=== PATIENT | female | born 1955 | race African-American/Black ===

== ENCOUNTER 2018-07-02 14:17 | Emergency (ER) | payer OTHER ==
[~2018-07-02] VITALS: Ht 167.6 cm; Wt 86.2 kg
--- NOTE | ~2018-07-02 | EKG ---
[address] [place] [address] ELECTROCARDIOGRAM REPORT Name: RAJIV PETERS [id number] Admission: 07/02/18 Attend Phys: Discharge: Date of : 55 Report #: [id number] THIS REPORT FOR: //name// [facility] ED Test Date: 2018-07-02 Test Time: 14:56:13 Pat Name: RAJIV PETERS Department: Room: Gender: F Excavating Supervisor: : 1955 Requested By: Joanie Witt Order Number: [id number] MD: Quique Lema Measurements Intervals [place] Rate: 120 P: 44 RI: 128 QRS: 31 QRSD: 88 T: 54 QT: 321 QTc: 454 Interpretive Statements Sinus tachycardia Early R-wave progression Nonspecific ST segment abnormality Baseline wander in lead(s) V1 No previous ECG available for comparison Electronically Signed On 07-02-2018 17:21:59 CDT by Quique Lema [email or web address] <ELECTRONICALLY SIGNED> By: Quique Lema MD, [facility] 07/02/18 1721 1456 1456 Quique Lema MD, FACC /EPI
[2018-07-02 15:15] LABS: HEMATOCRIT 33.2 % (37.0-47.0); HEMOGLOBIN 11.2 gm/dL (12.0-15.0); MCH 35.1 pg (26.0-34.0); MCHC 33.9 g/dL (28.0-37.0); MCV 103.7 fL (80.0-100.0); RBC 3.2 mil/uL (4.20-5.00); RDW 18.7 % (10.5-14.5); WBC 8.8 thou/uL (4.0-11.0)
[2018-07-02 15:24] LABS: URINE BILIRUBIN NEGATIVE (Negative); URINE BLOOD NEGATIVE (Negative); URINE CLARITY CLEAR; URINE COLOR YELLOW; URINE GLUCOSE-RANDOM* NEGATIVE (Negative); URINE KETONES NEGATIVE (Negative); URINE PROTEIN (DIPSTICK) NEGATIVE (Negative); URINE SPECIFIC GRAVITY 1.015 (1.005-1.035); URINE UROBILINOGEN 0.2 E.U./dl (0.2-1.0)
[2018-07-02 15:26] LABS: ANION GAP 11 mmol/L (7-16); BUN 12 mg/dL (7-18); CALCIUM 8.7 mg/dL (8.5-10.1); CHLORIDE 106 mmol/L (98-107); CO2 23 mmol/L (21-32); CREATININE 0.7 mg/dL (0.6-1.0); GLUCOSE 126 mg/dL (74-106); POTASSIUM 3.7 mmol/L (3.5-5.1); SODIUM 140 mmol/L (136-145)
[2018-07-02 15:27] LABS: URINE LEUKOCYTES-REFLEX TRACE (Negative); URINE NITRITE-REFLEX POSITIVE (Negative)
[2018-07-02 15:32] LABS: ALBUMIN 2.7 g/dL (3.4-5.0); SGOT 12 U/L (15-37); SGPT 9 U/L (30-65); TOTAL BILIRUBIN 0.7 mg/dL (<0.1-1.0); TROPONIN-I <0.06 ng/mL (<0.06)
[2018-07-02 15:33] LABS: BACTERIA-REFLEX >30 Many /HPF (None Seen); CASTS None Seen /LPF (None Seen); CRYSTALS None Seen /LPF (None Seen); SQUAMOUS 0-3 Few /LPF (0-3); URINE RBC None Seen /HPF (0-2); URINE WBC-REFLEX 6-15 Few /HPF (0-5)
[2018-07-02] MEDS ORDERED: XANAX 0.5 MG0.5 MG PO (16:01)
[2018-07-02] MEDS ORDERED: OXYCONTIN15 MG PO (16:01)
[2018-07-02] MEDS ORDERED: TRAZODONE 150150 M1 PO (16:01)
[2018-07-02] MEDS ORDERED: DIOVAN160 MG PO (16:02)
[2018-07-02] MEDS ORDERED: LOPRESSOR50 PO (16:02)
[2018-07-02] MEDS ORDERED: LEFLUNOMIDE 1010 MG PO (16:04)
[2018-07-02] MEDS ORDERED: AZATHIOPRINE50 MG PO (16:06)
[2018-07-02] MEDS ORDERED: MOBIC7.5 M1 PO (16:09)
[2018-07-02] MEDS ORDERED: KEFLEX500 M1 PO (22:21)
[2018-07-02] MEDS ORDERED: OXYCODONE HCL 55 MG PO (22:21)
[2018-07-02 23:25] VITALS: BP 150/89
== END 2018-07-03 00:10 | disposition home or self-care (01) ==
LOC: ER 14:17
PROVIDERS: Student in an Organized Health Care Education/Training Program
DX: G96.8 Other specified disorders of central nervous system (principal); N39.0 Urinary tract infection, site not specified; E11.9 Type 2 diabetes mellitus without complications; I10 Essential (primary) hypertension; J45.909 Unspecified asthma, uncomplicated; M19.90 Unspecified osteoarthritis, unspecified site; K21.9 Gastro-esophageal reflux disease without esophagitis; Z88.2 Allergy status to sulfonamides

== ENCOUNTER 2018-07-10 14:25 | Emergency (ER) | payer OTHER ==
[~2018-07-10] VITALS: Ht 167.6 cm; Wt 85.7 kg
[~2018-07-10 14:25] MED LIST: AZATHIOPRINE50 MG PO; DIOVAN160 MG PO; KEFLEX500 M1 PO; LEFLUNOMIDE 1010 MG PO; LOPRESSOR50 PO; MOBIC7.5 M1 PO; OXYCODONE HCL 55 MG PO; OXYCONTIN15 MG PO; TRAZODONE 150150 M1 PO; XANAX 0.5 MG0.5 MG PO
[2018-07-10] MEDS ORDERED: OXYCODONE HCL15 MG PO (16:50)
== END 2018-07-10 17:00 | disposition home or self-care (01) ==
LOC: ER 14:25
DX: G89.29 Other chronic pain (principal); M54.9 Dorsalgia, unspecified; I10 Essential (primary) hypertension; K21.9 Gastro-esophageal reflux disease without esophagitis; J45.909 Unspecified asthma, uncomplicated; E11.9 Type 2 diabetes mellitus without complications; M19.90 Unspecified osteoarthritis, unspecified site; Z88.2 Allergy status to sulfonamides

== ENCOUNTER 2018-07-18 14:22 | Emergency (ER) | payer OTHER ==
[~2018-07-18] VITALS: Ht 167.6 cm; Wt 81.7 kg
--- NOTE | ~2018-07-18 | EKG ---
[place] [address] [facility] [place] [address] ELECTROCARDIOGRAM REPORT Name: RAJIV PETERS Room #: [facility].#: [id number] Admission: Attend Phys: Discharge: Date of : 55 Report #: [id number] THIS REPORT FOR: //name// [facility] ED Test Date: 2018-07-18 Test Time: 15:02:56 Pat Name: RAJIV PETERS Department: Room: Gender: F [employer]: NIRMALA : 1955 Requested By: Yelitza Gutierrez Order Number: [id number] MD: Elpidio Bravo Measurements Intervals [place] Rate: 108 P: 44 CO: 129 QRS: 24 QRSD: 92 T: 40 QT: 348 QTc: 467 Interpretive Statements Sinus tachycardia early transition Non-specific st/t wave changes Compared to ECG 07/02/2018 14:56:13 no significant changes Electronically Signed On 07-18-2018 15:09:41 [employer] by Elpidio Bravo [email or web address] <ELECTRONICALLY SIGNED> By: Elpidio Bravo MD 07/18/18 1509 1502 1502 Elpidio Bravo MD /ANSON
[~2018-07-18 14:22] MED LIST changes: +OXYCODONE HCL15 MG PO
[2018-07-18 15:18] LABS: HEMATOCRIT 30.5 % (37.0-47.0); HEMOGLOBIN 10.4 gm/dL (12.0-15.0); MCH 35.1 pg (26.0-34.0); MCHC 34.1 g/dL (28.0-37.0); MCV 102.9 fL (80.0-100.0); PLATELET COUNT 269 thou/uL (150-400); RBC 2.96 mil/uL (4.20-5.00); RDW 18.8 % (10.5-14.5); WBC 4.5 thou/uL (4.0-11.0)
[2018-07-18 15:27] LABS: ANION GAP 8 mmol/L (7-16); BUN 19 mg/dL (7-18); CALCIUM 9.3 mg/dL (8.5-10.1); CHLORIDE 106 mmol/L (98-107); CO2 28 mmol/L (21-32); CREATININE 0.7 mg/dL (0.6-1.0); GLUCOSE 123 mg/dL (74-106); POTASSIUM 3.5 mmol/L (3.5-5.1); SODIUM 142 mmol/L (136-145)
[2018-07-18 15:35] LABS: ALBUMIN 3.1 g/dL (3.4-5.0); SGOT 14 U/L (15-37); SGPT 9 U/L (30-65); TOTAL BILIRUBIN 0.5 mg/dL (<0.1-1.0); TOTAL PROTEIN 7.5 g/dL (6.4-8.2); TROPONIN-I <0.06 ng/mL (<0.06)
[2018-07-18 16:15] LABS: ABSOLUTE NEUTROPHILS 2.7 thou/uL (1.4-8.2); ANISOCYTOSIS 2+; MACROCYTES 1+; PLATELET ESTIMATE NORMAL; SCHISTOCYTES 1+
[2018-07-18] MEDS ORDERED: OXYCODONE HCL15 MG PO (17:33)
[2018-07-18] MEDS ORDERED: SENNA-DOCUSATE1 EACH PO (17:33)
== END 2018-07-18 18:30 | disposition home or self-care (01) ==
LOC: ER 14:22
PROVIDERS: Nurse Practitioner Family
DX: M54.5 Low back pain (principal); R51 Headache; D64.9 Anemia, unspecified; K21.9 Gastro-esophageal reflux disease without esophagitis; E11.9 Type 2 diabetes mellitus without complications; I10 Essential (primary) hypertension; J45.909 Unspecified asthma, uncomplicated; M19.90 Unspecified osteoarthritis, unspecified site; Z88.2 Allergy status to sulfonamides

== ENCOUNTER 2018-07-24 17:23 | Emergency (ER) | payer OTHER ==
[~2018-07-24] VITALS: Ht 167.6 cm; Wt 85.7 kg
[~2018-07-24 17:23] MED LIST changes: +SENNA-DOCUSATE1 EACH PO
[2018-07-24 17:26] VITALS: BP 149/83
[2018-07-24] MEDS ORDERED: NORFLEX100 MG PO (18:23)
[2018-07-24] MEDS ORDERED: NAPROSYN500 MG PO (18:23)
== END 2018-07-24 18:56 | disposition home or self-care (01) ==
LOC: ER 17:23
DX: S39.012A Strain of muscle, fascia and tendon of lower back, initial encounter (principal); S40.011A Contusion of right shoulder, initial encounter; G89.29 Other chronic pain; K21.9 Gastro-esophageal reflux disease without esophagitis; E11.9 Type 2 diabetes mellitus without complications; I10 Essential (primary) hypertension; J45.909 Unspecified asthma, uncomplicated; M19.90 Unspecified osteoarthritis, unspecified site; Z88.2 Allergy status to sulfonamides; W06.XXXA Fall from bed, initial encounter; Y93.89 Activity, other specified; Y92.89 Other specified places as the place of occurrence of the external cause; Y99.8 Other external cause status

== ENCOUNTER 2018-07-30 12:46 | Emergency (ER) | payer OTHER ==
[~2018-07-30] VITALS: Ht 167.6 cm; Wt 81.7 kg
[~2018-07-30 12:46] MED LIST changes: +NAPROSYN500 MG PO; +NORFLEX100 MG PO
[2018-07-30] MEDS ORDERED: LEXAPRO20 MG PO (13:03)
[2018-07-30] MEDS ORDERED: NORFLEX100 MG PO (14:08)
[2018-07-30 16:24] VITALS: BP 144/79
== END 2018-07-30 16:24 | disposition home or self-care (01) ==
LOC: ER 12:46
DX: M51.36 Other intervertebral disc degeneration, lumbar region (principal); M47.896 Other spondylosis, lumbar region; G89.29 Other chronic pain; M54.5 Low back pain; I10 Essential (primary) hypertension; E11.9 Type 2 diabetes mellitus without complications; K21.9 Gastro-esophageal reflux disease without esophagitis

== ENCOUNTER 2018-08-12 11:45 | Emergency (ER) | payer OTHER ==
[~2018-08-12] VITALS: Ht 167.6 cm; Wt 85.7 kg
[~2018-08-12 11:45] MED LIST changes: +AMLODIPINE BESY10 MG PO; +ARAVA20 MG PO; +CELECOXIB100 MG PO; +CYMBALTA60 MG PO; +LASIX 20 MG TAB20 MG PO; +LEXAPRO 10 MG T10 M2 PO; +LEXAPRO20 MG PO; +LIORESAL 10 MG10 MG PO; +MOBIC15 MG PO; +NEXIUM40 MG PO; +SENNA8.6 MG PO; +TYLENOL ARTHRI650 MG PO; +VALSARTAN-HCTZ1 EAC2 PO; +ZANAFLEX4 MG PO
[2018-08-12] MEDS ORDERED: NORFLEX100 MG PO (12:41)
[2018-08-12] MEDS ORDERED: PREDNISONE 20 M20 MG PO (12:41)
[2018-08-12 13:05] VITALS: BP 149/77
== END 2018-08-12 13:59 | disposition home or self-care (01) ==
LOC: ER 11:45
DX: M54.32 Sciatica, left side (principal); K21.9 Gastro-esophageal reflux disease without esophagitis; E11.9 Type 2 diabetes mellitus without complications; I10 Essential (primary) hypertension; J45.909 Unspecified asthma, uncomplicated; M19.90 Unspecified osteoarthritis, unspecified site; Z86.2 Personal history of diseases of the blood and blood-forming organs and certain disorders involving the immune mechanism; Z88.2 Allergy status to sulfonamides

== ENCOUNTER → 2018-09-26 | Outpatient (CLI) | payer OTHER ==
[~2018-09-26] MED LIST changes: +IRON325 PO; +NEURONTIN 300300 M1 PO; +NYSTATIN100000 UNI SW&SWALLOW; +OXYCONTIN10 M1 PO; +PREDNISONE 20 M20 MG PO; +XARELTO15 MG PO
== END ==
LOC: ULTRA 12:45
DX: M25.562 Pain in left knee (principal); R60.0 Localized edema

== ENCOUNTER → 2018-10-19 | Outpatient (CLI) | payer OTHER ==
[~2018-10-19] VITALS: Ht 167.6 cm; Wt 93.0 kg
[~2018-10-19] MED LIST changes: +DURAGESIC1 EACH TRANSDERM; +XTAMPZA ER18 MG PO
[2018-10-19 09:32] VITALS: BP 134/82
--- NOTE | 2018-10-19 10:27 | NUR ---
Pain Clinic Assessment: 1. History of Osteoarthritis: KNEES BACK History of Rheumatoid Arthritis: NO 2. Height: 5 ft. 6 in. 167.6 cm. Weight: 205.0 lb. oz. 92.988 kg. Patient's BMI: 33.1 3. Vital Signs: BP: 134/82 Pulse: 87 Resp: 16 Temp: 02 Sat: 99 ECG Mon: 4. Pain Intensity: 8 5. Fall Risk: Dizziness: Y Needs help standing or walking: Y Fallen in the last 3 months: N Fall risk comments: 6. Patient on Blood Thinner: None 7. History of Hypertension: Y 8. Opioid Therapy greater than 6 weeks: Opiate Contract Signed: 9. Risk Assessment Tool Provided: 10. Functional Assessment Tool: 11. Recreational Drug Use: Unknown Drug Type: Tobacco Use: Unknown if Ever Smoked Tobacco Type: Amount or Packs/day: How Many Years: Alcohol Use: Yes Frequency: Special Occasions Quant:
--- NOTE | 2018-10-24 08:13 | HPC ---
[facility] [address] [place] [address] PAIN MANAGEMENT CONSULTATION Name: RAJIV PETERS Room #: REG SHELLY Emery#: [id number] Admission: 10/19/18 Attend Phys: Kade Gamez MD Discharge: Date of : 55 Report #: [id number] THIS REPORT FOR: //name// CC: Yony Gamez DATE OF SERVICE: 10/19/2018 CHIEF COMPLAINT: Chronic back pain. HISTORY: The patient is a 62-year-old female who has been referred to the pain clinic for evaluation. She moved from [place] to [place] to help with her parents. Since she has been here, she has had problems with her back. She has been seen in the Emergency Room on a numerous occasions. She has had chronic pain in her left knee. She has undergone a left knee arthroplasty. She is still rehabbing from this procedure. The patient states that she has had some problems with her heart rate in the past. States that she has had a cardiac catheterization done. She has a history of diabetes, hypertension, asthma, chronic back pain, back injury and has had bloody stools in the past. She has had an MRI of her low back area. It appears that the patient may have a disk fragment at the L2-L3 level. It suggests a large extruded disk fragment centrally and to the left with inferior extension along the L3 vertebral body. The patient states that she was seen by surgeon at [facility]. He recommended a more conservative approach instead of surgery. She complains of some pain in the left side with pain that radiates down her buttocks and involves her leg. The patient has been using pain medications. She states that she was provided with the fentanyl patch 12 mcg. I did not feel that medications provided much help. She states that she was taking oxycodone medications for extended release and felt that medication was helpful. The patient states that she does have a home health nurse who has been checking on her. Notes that she walks with a walker. ALLERGIES: SULFA. CURRENT MEDICATIONS: Fentanyl patch 12 mcg transdermal, gabapentin 300 mg at bedtime, iron 325 mg b.i.d., senna b.i.d. p.r.n. constipation, Tylenol Arthritis 650 mg, tizanidine 8 mg b.i.d., Lasix 20 mg every day p.r.n. swelling, valsartan/hydrochlorothiazide 160/25, amlodipine 10 mg, Celebrex 100 mg b.i.d., Arava 20 mg, Nexium 40 mg, Norflex 100 mg, Lexapro 10 mg, azathioprine 50 mg b.i.d., trazodone 150 mg at bedtime. DISCONTINUED MEDICATIONS: Valsartan 160 mg, metoprolol 50 mg, leflunomide, Meloxicam, Lexapro 20 mg, baclofen 10 mg t.i.d., Cymbalta 60 mg. PAST MEDICAL HISTORY: GERD, anemia, noninsulin dependent diabetes, hypertension, asthma, arthritis, chronic back pain. The patient complains of [address] [address] PAIN MANAGEMENT CONSULTATION Name: RAJIV PETERS Room #: REG CL[facility]in Emery#: [id number] Admission: 10/19/18 Attend Phys: Kade Gamez MD Discharge: Date of : 55 Report #: [id number] chronic pain. PAST SURGICAL HISTORY: Tubal ligation, right wrist surgery, EGD, colonoscopy. SOCIAL HISTORY: Left knee replacement on 08/22/2018, filter inferior vena cava, left groin in 08/2018. 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 REVIEW OF SYSTEMS: Recent weight change, headaches, wears glasses, ear aches, shortness of breath, asthma, constipation, frequent urination, headaches, depression, non-insulin dependent diabetes, excessive thirst. LABORATORY DATA: MRI of the lumbar spine dated on 07/02/2018: 1. L4-L5 shows diffuse disk bulging. There is facet spurring and joint fluid with ligamentum flavum hypertrophy. Disk bulges at asymmetric with foraminal encroachment bilaterally. This is marked on the right. 2. L3-L4 shows diffuse disk bulging. There is facet spurring and degenerative change. Central canal is maintained. There is foraminal encroachment mildly bilaterally, greater on the left. 3. L2-L3 shows central and left lateral epidural low T2 signal mass, which causes mass effect on the left sac and left neural foramen. This has a low T2 signal and appears to be extruded or extending from the disk level at L2-L3. This suggests a large extruded disk fragment centrally and to the left with inferior extension along the L3 vertebral body. There is minimal epidural enhancement at this region without epidural fluid or evidence of infection or fluid in the disk. There is, however, some marrow edema of the adjacent endplate. The CT shows some sclerosis at the margins of this L3 marrow edema, which may indicate chronic degenerative change. There is no fluid to suggest infection. Clinical correlation may be useful as well. Facet degenerative changes are noted with ligamentum flavum hypertrophy. Central canal is narrowed to 9 mm. PAIN CLINIC ASSESSMENT/PQRS: 1. History of osteoarthritis. The patient has knees and back problems status post left knee replacement. The patient is not being treated for rheumatoid arthritis. 2. Height 5 feet 6, weight 205 pounds, BMI is 33. 3. Vital signs: Blood pressure 134/82, pulse 87, respiratory rate 16, room air saturation 99%. 4. Pain intensity 04/20. 5. Fall risk. The patient fell from her bed in the latter portion 2017. Has not fallen in the last month. 6. Blood thinner. The patient is not on a blood thinning medication, does have IVC filter in place. [facility] [address] [place] [address] PAIN MANAGEMENT CONSULTATION Name: RAJIV PETERS Room #: REG [facility]#: [id number] Admission: 10/19/18 Attend Phys: Kade Gamez MD Discharge: Date of : 55 Report #: [id number] 7. Opioids greater than 6 weeks. The patient has been receiving opioid medications from her for greater than 6 weeks. 8. Risk assessment tool high for opioid use. 9. Functional assessment tool 67/70. 10. Recreational drug use. The patient denies use of recreational drugs. 11. Tobacco: The patient states she has never smoked. 12. Alcohol. The patient states she drinks alcoholic beverages on special occasion. PHYSICAL EXAMINATION: GENERAL: The patient is a well-developed black female. She is in a wheelchair. She is not complaining of headache pain. HEENT: Normocephalic, atraumatic. Extraocular eye muscles intact. Sclerae nonicteric. Mucous membranes are moist. NECK: Without adenopathy or JVD. HEART: Normal heart tones without normal. LUNGS: Clear to auscultation without rhonchi or rales. ABDOMEN: Protuberant. Bowel sounds present. The patient without significant kyphosis, lordosis. She states that she has some history of scoliosis. Upper extremity muscle strength is judged to be 5-/5 for the major muscle groups in the upper extremity. The patient states that she has difficulty standing. Goes from a sitting position in the wheelchair to a standing position. She reaches for the computer stand for support. States that she cannot bend over to touch her toes. Cannot move left or right. Has pain and discomfort that is radiating down the left buttock area and down into her legs. She states that she has pain all over. IMPRESSION: Left buttocks, left side. Pain in the L2-L3 dermatomal distribution. The patient has an MRI, which shows the probability of a disk fragment at L2-L3. The patient complains of chronic pain. RECOMMENDATIONS: We discussed treatment options with the patient. She feels that the fentanyl medication has not been helpful. We will discontinue the 12 mcg fentanyl patches. It felt that when she was using the OxyContin 20 mg this was efficacious. We will have the patient to try Xtampza which is OxyContin medication, which is adjunct faculty for medical terminology, she will take 1 b.i.d. The patient may be considered for epidural steroid injection in the future. The patient states that she has seen a doctor at [facility]. He recommended conservative approach at this juncture. We have rewritten for medications. She will call us if she has any concerns. We would recommend that the patient not to take Tylenol in excess. She states that she has taken 6-7 Tylenol pills to help control her pain. We explained the probable problem with this medication and liver function. We would like to [facility] [address] [place] [address] PAIN MANAGEMENT CONSULTATION Name: RAJIV PETERS Room #: REG [facility] Guevara#: [id number] Admission: 10/19/18 Attend Phys: Kade Gamez MD Discharge: Date of : 55 Report #: [id number] thank you for letting us participate in her care. We hope she continues to improve. <ELECTRONICALLY SIGNED> By: Kaed Gamez MD 10/24/18 0813 1628 8 Kade Gamez MD /nt
== END ==
LOC: PAIN 07:58
DX: M25.552 Pain in left hip (principal); G89.29 Other chronic pain; Z79.899 Other long term (current) drug therapy